=== PATIENT | female | born 2000 | race African-American/Black ===

== ENCOUNTER 2022-02-01 14:26 | Inpatient (IN) ==
[~2022-02-01 14:26] MED LIST: LORazepam 2 mg VIAL 1 ml ONE
[2022-02-01 17:21] LABS: ABS Eosinophils 0.2 10^3/ul (0-0.6); ABS Lymphocytes 1.2 10^3/ul (1.0-4.8); ABS Monocytes 0.4 10^3/ul (0-0.8); ABS Neutrophils 3.2 10^3/ul (1.5-7.7); Eosinophil % 3.3 %; Hematocrit 39 % (35-47); Hemoglobin 12.6 g/dL (12.0-16.0); Lymphocyte % 24.1 %; Mean Corpuscular HGB Conc 32 g/dL (31-36); Mean Corpuscular Hemoglobin 27 pg (27-31); Mean Corpuscular Volume 85 fL (80-97); Mean Platelet Volume 7.9 fL (7.4-10.4); Platelet Count 266 10^3/uL (150-450); Red Blood Count 4.65 10^6 /uL (3.70-4.87); Red Cell Distribution Width 14 % (10-15); White Blood Count 5.1 10^3/uL (3.5-10.8)
[2022-02-01 18:15] LABS: HCG Pregnancy 0.92 mIU/mL
[2022-02-01 18:22] LABS: ALT 12 U/L (7-52); AST 33 U/L (13-39); Albumin 4.2 g/dL (3.2-5.2); Albumin/Globulin Ratio 1.7 (1-3); Alcohol, S 18 mg/dL (<13); Alkaline Phosphatase 48 U/L (35-149); Anion Gap 5 mmol/L (2-11); Blood Urea Nitrogen 8 mg/dL (6-24); CO2 Carbon Dioxide 25 mmol/L (22-32); Calcium 9.4 mg/dL (8.6-10.3); Chloride 107 mmol/L (101-111); Globulin 2.5 g/dL (2-4); Glucose 75 mg/dL (70-100); Potassium 4.2 mmol/L (3.5-5.0); Salicylate < 2.50 mg/dL (<30); Sodium 137 mmol/L (135-145); Total Protein 6.7 g/dL (6.4-8.9); eGFR CKD-EPI 108.1 (>60)
[2022-02-01 18:26] LABS: Acetaminophen < 15 mcg/mL
[2022-02-01] MEDS ORDERED: diazePAM INJ CARPUJECT 5 MG/ML SYRINGE IM ONE (19:28)
[2022-02-01] MEDS ORDERED: LORazepam 2 mg VIAL 1 ml ONE (19:40)
[2022-02-01] MEDS ORDERED: Haloperidol 5 mg/ml SDV IV/IM 5 MG/ML AMP IM ONE (19:40)
[2022-02-02 04:52] LABS: Urine Appearance Clear; Urine Bilirubin Negative (Negative); Urine Blood 3+ (Large) (Negative); Urine Color Yellow; Urine Glucose Negative (Negative); Urine Ketones Negative (Negative); Urine Nitrite Negative (Negative); Urine Protein Negative (Negative); Urine Specific Gravity 1.015 (1.005-1.030); Urine Urobilinogen 0.2 (Negative) (Negative)
[2022-02-02 05:07] LABS: Urine Bacteria Absent (Absent); Urine Red Blood Cell 2+(6-10/hpf) (Absent); Urine Squamous Epithelial Cell Present (Absent); Urine White Blood Cell 1+(6-10/hpf) (Absent)
[2022-02-02 05:24] LABS: Urine Benzodiazepine Screen Presumptive Positive (None Detect); Urine Cannabinoids Screen Presumptive Positive (None Detect); Urine Opiates Screen None Detected (None Detect)
[2022-02-02] MEDS ORDERED: Al Hydrox/Mg Hydrox/Simet LIQ 30 ML UDC PO PRN (09:32)
[2022-02-04 13:46] LABS: Chlamydia trachomatis NAA Negative (Negative); Neisseria gonorrhoeae (GC) NAA Negative (Negative)
[2022-02-04 19:16] VITALS: BP 133/97
[2022-02-05 08:19] LABS: HDL Cholesterol 52.4 mg/dL
[2022-02-05 10:30] LABS: HCG Pregnancy 0.94 mIU/mL
[2022-02-05 11:55] LABS: HIV 4th Generation Nonreactive (Nonreactive)
== END 2022-02-08 01:55 | disposition home or self-care (01) | DRG 774 ==
LOC: ED 14:26 → EDHOLD 02-02 09:32 → BSU 02-02 11:57
PROVIDERS: ADMIT Psychiatry & Neurology Psychiatry; ATTEND Psychiatry & Neurology Psychiatry

== ENCOUNTER 2022-02-08 17:38 | Inpatient (IN) ==
[2022-02-08] MEDS ORDERED: Al Hydrox/Mg Hydrox/Simet LIQ 30 ML UDC PO PRN (19:03)
[2022-02-09] MEDS: Vitamin THERAPEUTIC TAB PO SCH (09:06)
[2022-02-09] MEDS: Nicotine GUM 2MG FRUIT FLAVOR PO PRN ×2 (12:47→19:25)
[2022-02-09] MEDS ORDERED: Multivitamins/Minerals TAB PO SCH (14:00)
[2022-02-10] MEDS: Vitamin THERAPEUTIC TAB PO SCH (09:56)
[2022-02-10] MEDS: Nicotine GUM 2MG FRUIT FLAVOR PO PRN ×4 (09:58→23:31)
[2022-02-10 18:15] VITALS: BP 115/76
[2022-02-11] MEDS: Vitamin THERAPEUTIC TAB PO SCH (09:21)
== END 2022-02-11 09:30 | disposition home or self-care (01) | DRG 776 ==
LOC: ED 17:38 → BSU 20:19
PROVIDERS: ADMIT Psychiatry & Neurology Psychiatry; ATTEND Psychiatry & Neurology Psychiatry

== ENCOUNTER 2022-08-01 01:54 | Inpatient (IN) ==
[2022-08-01] MEDS ORDERED: Midazolam 2 mg/2 ml VIAL 1 mg/ml 2 ml VIAL (2 mg) IM ONE ×2 (03:41→04:58)
[2022-08-01] MEDS ORDERED: Midazolam 2 mg/2 ml VIAL 1 mg/ml 2 ml VIAL (2 mg) ONE ×2 (03:41→03:47)
[2022-08-01] MEDS ORDERED: Droperidol 5 MG/2 ML 2 ML VIAL IM ONE (03:41)
[2022-08-01] MEDS ORDERED: Droperidol 5 MG/2 ML 2 ML VIAL ONE (03:41)
[2022-08-01] MEDS ORDERED: Ketamine HCL 50 mg/ml 10 ml VIAL (500 MG) ONE (03:52)
[2022-08-01 04:29] LABS: Hematocrit 36 % (35-47); Hemoglobin 11.8 g/dL (12.0-16.0); Mean Corpuscular HGB Conc 33 g/dL (31-36); Mean Corpuscular Hemoglobin 27 pg (27-31); Mean Corpuscular Volume 82 fL (80-97); Mean Platelet Volume 7.6 fL (7.4-10.4); Platelet Count 315 10^3/uL (150-450); Red Blood Count 4.39 10^6 /uL (3.70-4.87); Red Cell Distribution Width 14 % (10-15); White Blood Count 4.6 10^3/uL (3.5-10.8)
[2022-08-01 04:30] LABS: Urine Appearance Clear; Urine Bilirubin Negative (Negative); Urine Blood Negative (Negative); Urine Color Colorless; Urine Glucose Negative (Negative); Urine Ketones Negative (Negative); Urine Nitrite Negative (Negative); Urine Protein Negative (Negative); Urine Specific Gravity 1.002 (1.002-1.030); Urine Urobilinogen Negative (Negative)
[2022-08-01 04:44] LABS: Urine Benzodiazepine Screen None Detected (None Detect); Urine Cannabinoids Screen Presumptive Positive (None Detect); Urine Opiates Screen None Detected (None Detect)
[2022-08-01] MEDS ORDERED: Ondansetron 4 mg VIAL 2 MG/ML 2 ml VIAL IV ONE (04:47)
[2022-08-01 04:55] LABS: ABS Eosinophils 0.1 10^3/ul (0-0.6); ABS Lymphocytes 1.6 10^3/ul (1.0-4.8); ABS Monocytes 0.3 10^3/ul (0-0.8); ABS Neutrophils 2.6 10^3/ul (1.5-7.7); Eosinophil % 1.5 %; Lymphocyte % 34.6 %; Nucleated Red Blood Cells % 0.1
[2022-08-01] MEDS ORDERED: Ketamine HCL 50 mg/ml 10 ml VIAL (500 MG) IM ONE (04:59)
[2022-08-01] MEDS ORDERED: Scopolamine 1 mg/72hr PATCH TRANSDERM SCH (05:00)
[2022-08-01 05:13] LABS: ALT 14 U/L (7-52); AST 29 U/L (13-39); Acetaminophen < 15 mcg/mL; Albumin 4.5 g/dL (3.2-5.2); Albumin/Globulin Ratio 1.7 (1-3); Alcohol, S 336 mg/dL (<13); Alkaline Phosphatase 48 U/L (35-149); Anion Gap 7 mmol/L (2-11); Blood Urea Nitrogen 13 mg/dL (6-24); CO2 Carbon Dioxide 26 mmol/L (22-32); Calcium 9.1 mg/dL (8.6-10.3); Chloride 107 mmol/L (101-111); Creatinine, Serum 0.75 mg/dL (0.51-0.95); Globulin 2.7 g/dL (2-4); Glucose 114 mg/dL (70-100); Potassium 3.8 mmol/L (3.5-5.0); Salicylate < 2.50 mg/dL (<30); Sodium 140 mmol/L (135-145); Total Protein 7.2 g/dL (6.4-8.9); eGFR CKD-EPI 116.1 (>60)
[2022-08-01 05:27] LABS: TSH Ultra Thyroid Stim Horm 0.67 mcIU/mL (0.34-5.60)
[2022-08-01] MEDS ORDERED: LORazepam 2 mg VIAL 1 ml IV PUSH ONE (14:35)
[2022-08-01] MEDS ORDERED: Lorazepam PYXIS KEY PRN (14:35)
[2022-08-01] MEDS ORDERED: Al Hydrox/Mg Hydrox/Simet LIQ 30 ML UDC PO PRN (15:02)
[2022-08-01] MEDS: LORazepam PO 0-6 for WAM protocol PO SCH (20:16)
[2022-08-02] MEDS: LORazepam PO 0-6 for WAM protocol PO SCH ×2 (01:46→04:22)
[2022-08-03] MEDS: LORazepam PO 0-6 for WAM protocol PO SCH (06:19)
[2022-08-03 08:30] LABS: HDL Cholesterol 87.6 mg/dL
[2022-08-03 09:09] VITALS: BP 128/77
== END 2022-08-03 11:55 | disposition home or self-care (01) | DRG 775 ==
LOC: ED 01:54 → EDHOLD 15:02 → BSU 16:39
PROVIDERS: ADMIT Psychiatry & Neurology Addiction Psychiatry; ATTEND Psychiatry & Neurology Addiction Psychiatry

== ENCOUNTER 2023-03-31 17:40 | Inpatient (IN) ==
[2023-03-31] MEDS ORDERED: Dexmedetomidine HCL 120 MCG FILM BUCCAL ONE (17:52)
[2023-03-31 18:32] LABS: ABS Eosinophils 0.1 10^3/uL (0.0-0.5); ABS Lymphocytes 1.7 10^3/uL (1.0-4.8); ABS Monocytes 0.4 10^3/uL (0.0-0.9); ABS Neutrophils 1.8 10^3/uL (1.5-7.6); Eosinophil % 3.1 %; Hematocrit 38.5 % (35-45); Hemoglobin 12.7 g/dL (11.5-14.3); Lymphocyte % 42.6 %; Mean Corpuscular Hemoglobin 27.5 pg (27-33); Mean Corpuscular Hgb Conc 32.9 g/dL (31-36); Mean Corpuscular Volume 83.6 fL (80-97); Mean Platelet Volume 8.3 fL (7.5-11.2); Nucleated Red Blood Cells % 0.1 %/100WBC (0.0-0.8); Platelet Count 285 10^3/uL (150-450); Red Blood Count 4.61 10^6/uL (3.63-4.92); Red Cell Distribution Width 15.4 % (12-17); White Blood Count 4.1 10^3/uL (3.8-11.8)
[2023-03-31 18:44] LABS: Urine Appearance Cloudy; Urine Bilirubin Negative (Negative); Urine Blood Negative (Negative); Urine Color Straw; Urine Glucose Negative (Negative); Urine Ketones Negative (Negative); Urine Nitrite Negative (Negative); Urine Protein Negative (Negative); Urine Specific Gravity 1.004 (1.002-1.030); Urine Urobilinogen Negative (Negative)
[2023-03-31 18:53] LABS: HCG Pregnancy < 0.60 mIU/mL
[2023-03-31 19:01] LABS: Urine Bacteria Absent (Absent); Urine Red Blood Cell Trace(0-2/hpf) (Absent); Urine Squamous Epithelial Cell Present (Absent); Urine White Blood Cell Trace(0-5/hpf) (Absent)
[2023-03-31 19:14] LABS: ALT 21 U/L (7-52); AST 32 U/L (13-39); Albumin 4.5 g/dL (3.2-5.2); Albumin/Globulin Ratio 1.6 (1-3); Alkaline Phosphatase 47 U/L (35-149); Anion Gap 8 mmol/L (2-16); Blood Urea Nitrogen 9 mg/dL (6-24); CO2 Carbon Dioxide 23 mmol/L (22-32); Calcium 9.2 mg/dL (8.6-10.3); Chloride 107 mmol/L (101-111); Creatinine, Serum 0.86 mg/dL (0.51-0.95); Globulin 2.9 g/dL (2-4); Glucose 107 mg/dL (70-100); Potassium 3.5 mmol/L (3.5-5.0); Sodium 138 mmol/L (135-145); Total Bilirubin 0.8 mg/dL (0.2-1.0); Total Protein 7.4 g/dL (6.4-8.9); eGFR CKD-EPI 98.5 (>60)
[2023-03-31 19:24] LABS: TSH Ultra Thyroid Stim Horm 0.89 mcIU/mL (0.34-5.60); Urine Benzodiazepine Screen None Detected (None Detect); Urine Cannabinoids Screen Presumptive Positive (None Detect); Urine Opiates Screen None Detected (None Detect)
[2023-03-31] MEDS ORDERED: Droperidol 5 MG/2 ML 2 ML VIAL IM ONE ×2 (19:49→20:11)
[2023-03-31 19:52] LABS: Acetaminophen < 15 mcg/mL; Alcohol, S < 13 mg/dL (<13); Salicylate < 2.50 mg/dL (<30)
[2023-03-31] MEDS ORDERED: Droperidol 5 MG/2 ML 2 ML VIAL ONE (20:12)
[2023-03-31] MEDS ORDERED: Lorazepam PYXIS KEY PRN (20:21)
[2023-03-31] MEDS ORDERED: LORazepam 2 mg VIAL 1 ml IM PRN (20:21)
[2023-03-31] MEDS ORDERED: LORazepam 2 mg VIAL 1 ml ONE (20:27)
[2023-03-31] MEDS ORDERED: Al Hydrox/Mg Hydrox/Simet LIQ 30 ML UDC PO PRN (21:07)
[2023-04-01] MEDS: Vitamin THERAPEUTIC TAB PO SCH (11:13)
[2023-04-01 13:46] LABS: HIV 4th Generation Nonreactive (Nonreactive)
[2023-04-01] MEDS ORDERED: Nicotine Lozenge mini 2 MG LOZNG.MINI MT PRN (14:28)
[2023-04-01] MEDS: Nicotine GUM 4MG FRUIT FLAVOR PO PRN (15:42)
[2023-04-01 16:21] LABS: Hepatitis C Antibody Negative (Negative)
[2023-04-01] MEDS: Miconazole TOPICAL CREAM 2% 30 GM TOPICAL SCH (21:20)
[2023-04-02] MEDS ORDERED: Nicotine PATCH 21 MG/24 HR PATCH ONE (10:11)
[2023-04-02] MEDS: Vitamin THERAPEUTIC TAB PO SCH (10:25)
[2023-04-02] MEDS: Miconazole TOPICAL CREAM 2% 30 GM TOPICAL SCH ×2 (10:26→21:36)
[2023-04-02] MEDS: Nicotine PATCH 21 MG/24 HR PATCH TRANSDERM SCH (13:41)
[2023-04-02] MEDS: Miconazole VAGINAL CREAM 2% 45 GM VAGINAL SCH (13:42)
[2023-04-02] MEDS ORDERED: Nicotine Lozenge mini 4 MG LOZNG.MINI MT PRN (14:18)
[2023-04-02] MEDS: Nicotine GUM 4MG FRUIT FLAVOR PO PRN ×2 (18:57→21:27)
[2023-04-02] MEDS: Miconazole VAG 200 mg SUPP VAGINAL SCH (23:42)
[2023-04-03 06:33] VITALS: BP 111/78
[2023-04-03] MEDS: Miconazole TOPICAL CREAM 2% 30 GM TOPICAL SCH ×2 (06:41→07:54)
[2023-04-03] MEDS: Nicotine GUM 4MG FRUIT FLAVOR PO PRN ×3 (07:52→17:38)
[2023-04-03] MEDS: Miconazole VAGINAL CREAM 2% 45 GM VAGINAL SCH (07:54)
[2023-04-03] MEDS: Vitamin THERAPEUTIC TAB PO SCH (07:54)
[2023-04-03] MEDS: Nicotine PATCH 21 MG/24 HR PATCH TRANSDERM SCH (07:54)
[2023-04-03] MEDS ORDERED: Influenza vaccine *QUAD* *2023-24* 0.5 ML SYRINGE IM ONE (09:00)
[2023-04-04] MEDS: Nicotine GUM 4MG FRUIT FLAVOR PO PRN ×4 (00:15→13:33)
[2023-04-04] MEDS: Miconazole TOPICAL CREAM 2% 30 GM TOPICAL SCH ×3 (00:25→09:05)
[2023-04-04] MEDS: Miconazole VAG 200 mg SUPP VAGINAL SCH (00:25)
[2023-04-04] MEDS: Nicotine PATCH 21 MG/24 HR PATCH TRANSDERM SCH ×2 (08:10→13:37)
[2023-04-04] MEDS: Vitamin THERAPEUTIC TAB PO SCH (08:10)
[2023-04-04] MEDS: Miconazole VAGINAL CREAM 2% 45 GM VAGINAL SCH (08:10)
[2023-04-04 12:12] LABS: Chlamydia trachomatis NAA Negative (Negative); Neisseria gonorrhoeae (GC) NAA Negative (Negative)
[2023-04-04 19:50] LABS: Trichomonas vaginalis SOURCE: URINE
== END 2023-04-04 16:34 | disposition home or self-care (01) | DRG 776 ==
LOC: ED 17:40 → EDHOLD 19:38 → BSU 21:19
PROVIDERS: ADMIT Psychiatry & Neurology Psychiatry; ATTEND Psychiatry & Neurology Psychiatry

== ENCOUNTER 2023-11-25 22:58 | Inpatient (IN) ==
[2023-11-25] MEDS ORDERED: Bacitracin OINTMENT TUBE ONE (23:13)
[2023-11-26 02:00] LABS: Hematocrit 34.6 % (35-45); Hemoglobin 11.6 g/dL (11.5-14.3); Mean Corpuscular Hemoglobin 28.1 pg (27-33); Mean Corpuscular Hgb Conc 33.6 g/dL (31-36); Mean Corpuscular Volume 83.5 fL (80-97); Red Blood Count 4.15 10^6/uL (3.63-4.92); Red Cell Distribution Width 13.5 % (12-17)
[2023-11-26 02:27] LABS: ABS Basophils 0.1 10^3/uL (0.0-0.1); ABS Eosinophils 0.1 10^3/uL (0.0-0.5); ABS Lymphocytes 2.3 10^3/uL (1.0-4.8); ABS Monocytes 0.3 10^3/uL (0.0-0.9); ABS Neutrophils 2.2 10^3/uL (1.5-7.6); Eosinophil % 2.4 %; Lymphocyte % 45.3 %; Mean Platelet Volume 7.8 fL (7.5-11.2); Nucleated Red Blood Cells % 0.1 %/100WBC (0.0-0.8); Platelet Count 285 10^3/uL (150-450)
[2023-11-26 02:38] LABS: ALT 14 U/L (7-52); AST 28 U/L (13-39); Acetaminophen < 15 mcg/mL; Albumin 4.5 g/dL (3.2-5.2); Albumin/Globulin Ratio 1.8 (1-3); Alcohol, S 211 mg/dL (<13); Alkaline Phosphatase 32 U/L (35-149); Anion Gap 7 mmol/L (2-16); Blood Urea Nitrogen 12 mg/dL (6-24); CO2 Carbon Dioxide 24 mmol/L (22-32); Calcium 9.1 mg/dL (8.6-10.3); Chloride 108 mmol/L (101-111); Creatinine, Serum 0.78 mg/dL (0.51-0.95); Globulin 2.5 g/dL (2-4); Glucose 84 mg/dL (70-100); Potassium 3.9 mmol/L (3.5-5.0); Salicylate < 2.50 mg/dL (<30); Sodium 139 mmol/L (135-145); Total Bilirubin 0.3 mg/dL (0.2-1.0); eGFR CKD-EPI 110.1 (>60)
[2023-11-26 02:45] LABS: HCG Pregnancy < 0.60 mIU/mL
[2023-11-26] MEDS ORDERED: Al Hydrox/Mg Hydrox/Simet LIQ 30 ML UDC PO PRN (03:51)
[2023-11-26] MEDS: Droperidol 5 MG/2 ML 2 ML VIAL IM ONE (04:44)
[2023-11-26] MEDS: Midazolam 5 mg/ml concentrated 5 mg/ml 1 ml VIAL INJ ONE (04:44)
[2023-11-26] MEDS: Vitamin THERAPEUTIC TAB PO SCH (08:47)
[2023-11-26] MEDS: Benzocaine/Menthol LOZ PO PRN (16:25)
[2023-11-26] MEDS: Nicotine GUM 4MG FRUIT FLAVOR PO ONE (19:02)
[2023-11-26] MEDS: Nicotine GUM 4MG FRUIT FLAVOR PO PRN (21:31)
[2023-11-26] MEDS: Multivitamins/Minerals TAB PO SCH (21:33)
[2023-11-26] MEDS: Thiamine 100 MG/ML 2 ml VIAL (200 mg) IM ONE (21:56)
[2023-11-27] MEDS ORDERED: Nicotine Lozenge mini 4 MG LOZNG.MINI MT PRN (15:50)
[2023-11-28 01:36] VITALS: BP 129/89
== END 2023-11-28 15:37 | disposition home or self-care (01) | DRG 775 ==
LOC: ED 22:58 → EDHOLD 11-26 03:51 → BSU 11-26 04:16
PROVIDERS: ADMIT Psychiatry & Neurology Psychiatry; ATTEND Psychiatry & Neurology Psychiatry